=== PATIENT | female | born 1955 | race Caucasian/White ===

== ENCOUNTER → 2016-06-03 | Outpatient (REF) | payer MEDICARE ==
[2016-06-03 17:36] LABS: ANION GAP 16.8 MEQ/L (3-15)
== END ==
LOC: LAB 14:48
PROVIDERS: ATTEND Nurse Practitioner Family
DX: E11.9 Type 2 diabetes mellitus without complications (principal); R80.9 Proteinuria, unspecified
CPT/HCPCS: 80048; 83036

== ENCOUNTER → 2016-06-03 | Outpatient (CLI) | payer MEDICARE | LOC: RAD 15:06 | PROVIDERS: ATTEND Nurse Practitioner Family | DX: M79.605 Pain in left leg (principal); M25.562 Pain in left knee | CPT/HCPCS: 73562 ==

== ENCOUNTER → 2016-06-05 | Outpatient (CLI) | payer MEDICARE | LOC: RAD 12:52 | PROVIDERS: ATTEND Nurse Practitioner Family | DX: R80.9 Proteinuria, unspecified (principal) | CPT/HCPCS: 76770 ==

== ENCOUNTER → 2016-06-12 | Outpatient (CLI) | payer MEDICARE | LOC: RAD 09:44 | PROVIDERS: ATTEND Nurse Practitioner Family | DX: M25.562 Pain in left knee (principal); S83.232A Complex tear of medial meniscus, current injury, left knee, initial encounter; X58.XXXA Exposure to other specified factors, initial encounter; M25.462 Effusion, left knee; M71.22 Synovial cyst of popliteal space [Baker], left knee | CPT/HCPCS: 73721 ==

== ENCOUNTER → 2016-07-10 | Outpatient (REF) | payer MEDICARE ==
[2016-07-10 15:50] LABS: ALBUMIN 3.6 g/dL (3.4-5.0); ALKALINE PHOSPHATASE 77 U/L (38-126); BASOPHILS % (AUTO) 0 % (0-2); BUN/CREATININE RATIO 15 (10-20); CREATINE KINASE 49 U/L (30-135); EOSINOPHILS # (AUTO) 0.2 10^3uL; EOSINOPHILS % (AUTO) 4 % (0-4); LYMPHOCYTES # (AUTO) 1.1 X10^3; MEAN CORPUSCULAR HEMOGLOBIN 27.1 PG (26.0-34.0); MEAN CORPUSCULAR HGB CONC 31.1 g/dL (31.0-37.0); MEAN CORPUSCULAR VOLUME 87 FL (80-100); MEAN PLATELET VOLUME 9.6 FL (6.0-9.5); MONOCYTES # (AUTO) 0.4 X10^3; MONOCYTES % (AUTO) 7 % (3-11); NEUTROPHILS # (AUTO) 4.2 X10^3; NEUTROPHILS % (AUTO) 70 % (51-67); PLATELET COUNT 192 10^3uL (150-450); TOTAL PROTEIN 6.9 g/dL (6.4-8.5); WHITE BLOOD COUNT 5.95 10^3uL (4.0-11.0)
--- NOTE | 2016-07-10 16:36 | Diagnostic Imaging Report ---
INDICATION: Dyspnea and hypoxia. DISCUSSION: Two views of the chest were obtained, comparison 06/04/2008. The lungs are hyperinflated, consistent with underlying COPD. The heart is enlarged. There is mild mixed interstitial alveolar opacities present consistent with early heart failure. Trace bilateral pleural effusions are present. No pneumothorax. IMPRESSION: 1. Cardiomegaly with early failure. Dictated by: Dictated on workstation # [id number]
== END ==
LOC: LAB 15:18
PROVIDERS: ATTEND Family Medicine
DX: R09.02 Hypoxemia (principal); I10 Essential (primary) hypertension; E13.41 Other specified diabetes mellitus with diabetic mononeuropathy; N18.3 Chronic kidney disease, stage 3 (moderate); E66.2 Morbid (severe) obesity with alveolar hypoventilation
CPT/HCPCS: 71020; 80053; 82550; 82553; 83880; 84439; 84443; 84484; 85025

== ENCOUNTER → 2016-07-10 | Outpatient (CLI) | payer MEDICARE | LOC: RT 10:07 | PROVIDERS: ATTEND Family Medicine | DX: R09.02 Hypoxemia (principal) | CPT/HCPCS: 94762 ==

== ENCOUNTER → 2016-07-17 | Outpatient (REF) | payer MEDICARE ==
[2016-07-17 17:28] LABS: ALBUMIN 3.9 g/dL (3.4-5.0); ANION GAP 14.9 MEQ/L (3-15)
[2016-07-18 16:11] LABS: PROTEIN UR MG/DL 190 mg/dL (1-14)
[2016-07-21 02:25] LABS: ANTI NUCLEAR ANTIBODY SCREEN Negative (Negative)
[2016-07-21 21:10] LABS: P-ANCA 6 U/mL (0-99)
== END ==
LOC: LAB 16:53
PROVIDERS: ATTEND Internal Medicine Nephrology
DX: N18.2 Chronic kidney disease, stage 2 (mild) (principal); I10 Essential (primary) hypertension
CPT/HCPCS: 80069; 82570; 82784; 84155; 84156; 84166; 86021; 86038; 86160; 86334

== ENCOUNTER → 2016-07-24 | Outpatient (CLI) | payer MEDICARE | LOC: RAD 10:43 | PROVIDERS: ATTEND Family Medicine | DX: R79.89 Other specified abnormal findings of blood chemistry (principal); R09.02 Hypoxemia; I10 Essential (primary) hypertension | CPT/HCPCS: 93306 ==

== ENCOUNTER → 2016-08-18 | Outpatient (REF) | payer MEDICARE ==
[2016-08-18 16:03] LABS: ANION GAP 13.8 MEQ/L (3-15)
== END ==
LOC: LAB 14:57
PROVIDERS: ATTEND Family Medicine
DX: E11.9 Type 2 diabetes mellitus without complications (principal); N18.3 Chronic kidney disease, stage 3 (moderate)
CPT/HCPCS: 80048; 83036